=== PATIENT | female | born 1975 | race Caucasian/White ===

== ENCOUNTER 2017-05-06 09:19 | Emergency (ER) ==
[2017-05-06 09:19] VITALS: BMI 25.8
[2017-05-06 09:24] VITALS: BP 120/79; TEMP 97.7
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
--- NOTE | 2017-05-06 10:52 | DI ---
Exam: Three x-rays of the left shoulder. Comparison: Chest x-ray performed 05/04/2016. Reason for exam: Pain. FINDINGS: No acute fracture or malalignment. The humeral head articulates with the bony glenoid. T he scapular Y-view is unremarkable. The clavicle is intact. Impression: No acute fracture or malalignment in the left shoulder
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
== END 2017-05-06 11:33 | disposition home or self-care (01) ==
LOC: ED 09:19
DX: R10.84 Generalized abdominal pain (principal); M25.512 Pain in left shoulder; V40.5XXA Car driver injured in collision with pedestrian or animal in traffic accident, initial encounter; F17.210 Nicotine dependence, cigarettes, uncomplicated
CPT/HCPCS: 99283